=== PATIENT | female | born 1970 | race Two or more races ===

== ENCOUNTER 2018-03-25 18:32 | Emergency (ER) | payer OTHER, MEDICAID ==
[~2018-03-25] VITALS: Ht 152.4 cm; Wt 60.9 kg
[2018-03-25 18:34] VITALS: BP 157/101
== END 2018-03-25 19:04 | disposition home or self-care (01) ==
LOC: ED 18:50
DX: S09.90XA Unspecified injury of head, initial encounter (principal); F07.81 Postconcussional syndrome; F17.200 Nicotine dependence, unspecified, uncomplicated; X58.XXXA Exposure to other specified factors, initial encounter; Y93.89 Activity, other specified; Y92.89 Other specified places as the place of occurrence of the external cause; Y99.8 Other external cause status
CPT/HCPCS: 99282